=== PATIENT | female | born 1930 | race Caucasian/White ===

== ENCOUNTER 2016-11-18 09:52 | Emergency (ER) | payer MEDICARE, BC, OTHER ==
[~2016-11-18] VITALS: Ht 162.6 cm; Wt 70.0 kg
[~2016-11-18 09:52] MED LIST: ASPI81TA82 PO; CALCTAB75 PO; LIAL1.2T PO; MISC1TAB9 PO; SYNT88TA PO; TAB-TAB PO; VITD400 PO; [UNRECOGNIZED DRUG - CODE] TD
[2016-11-18 09:56] VITALS: BP 141/78; PULSE 88; RESP 16; TEMP 98.6; O2SAT 94
[2016-11-18] MEDS ORDERED: VITATAB11 PO (10:05)
[2016-11-18] MEDS ORDERED: BOSW5TAB PO (10:05)
[2016-11-18] MEDS ORDERED: CALC500T42 PO (10:05)
[2016-11-18] MEDS ORDERED: MULT1TAB84 PO (10:05)
[2016-11-18] MEDS ORDERED: LEVO75TA3 PO (10:05)
[2016-11-18] MEDS ORDERED: VITA100018 PO (10:05)
[2016-11-18] MEDS ORDERED: LIAL1.2T PO (10:05)
[2016-11-18] MEDS ORDERED: ASPI81TA81 PO (10:05)
--- NOTE | 2016-11-18 10:11 | PD ---
HPI Chief Complaint: ENT Complaint Time Seen by Provider: 10:02 Travel History International Travel<30 days: No Contact w/Intl Traveler<30days: No Traveled to known affect area: No History of Present Illness HPI 86-year-old female here for evaluation of sore throat, fever, chills. Symptoms have been going on for the last 5 days. Throat pain has been persistent, worse with swallowing. She is able to swallow, however it is difficult because of pain. She was able to take her thyroid medication this morning. Reports having a fever of 101F. No cough or dyspnea. No chest pain. No abdominal pain, nausea, vomiting, or diarrhea. She believes she may have the flu. PFSH Past Medical History Diminished Hearing: No Gastrointestinal Disorders: Yes (ULCERATIVE COLITIS) Genitourinary: Yes (OVERACTIVE BLADDER ) Thyroid Disease: Yes (HYPO) Past Surgical History Eye Surgery: Yes (BILAT CATARACT) Genitourinary Surgery: Yes (BLADDER STIMULATOR R BUTTOCK) Gynecologic Surgery: Yes Oral Surgery: Yes Tonsillectomy: Yes Other Surgery: Yes Social History Alcohol Use: No Tobacco Use: No Substance Use: No Allergies-Medications (Allergen,Severity, Reaction): Coded Allergies: No Known Allergies (Unverified , 03/22/14) Reported Meds & Prescriptions Reported Meds & Active Scripts Active Reported Osteo Bi-Flex One A Day (Efebxcgnj-Vpmfdnvskpx-Vspmnhv) 1 Tab 1 Tab PO DAILY Vitamin B Complex (B-Complex Vitamins) 1 Tab 1 Tab PO DAILY Vitamin D3 (Cholecalciferol) 1,000 Unit Tab 1,000 Units PO DAILY Multivitamin Adults (Multiple Vitamins W/ Minerals) 1 Tab 1 Tab PO DAILY Aspir-81 (Aspirin) 81 Mg Tabdr 1 Tab PO DAILY Calcium 500 Mg Tab 500 Mg PO BID Lialda (Mesalamine) 1.2 Gm Tabdr 2.4 Gm PO DAILY Take with a meal. Levothyroxine (Levothyroxine Sodium) 75 Mcg Tab 75 Mcg PO DAILY Review of Systems Except as stated in HPI: all other systems reviewed are Neg Physical Exam Narrative GENERAL: Well-developed, well-nourished, comfortable, no acute distress. SKIN: Warm and dry. HEAD: Atraumatic. Normocephalic. EYES: Pupils equal and round. No scleral icterus. No injection or drainage. ENT: No nasal bleeding or discharge. Mucous membranes pink and moist. Pharynx is erythematous without exudate. Uvula midline. Normal phonation. No drooling or stridor. NECK: Trachea midline. No JVD. No nuchal rigidity. CARDIOVASCULAR: Regular rate and rhythm. RESPIRATORY: No accessory muscle use. Clear to auscultation. Breath sounds equal bilaterally. GASTROINTESTINAL: Abdomen soft, non-tender, nondistended. MUSCULOSKELETAL: No obvious deformities. No clubbing. No cyanosis. No edema. NEUROLOGICAL: Awake and alert. No obvious cranial nerve deficits. Motor grossly within normal limits. Normal speech. PSYCHIATRIC: Appropriate mood and affect; insight and judgment normal. Data Data Last Documented VS Vital Signs Date Time Temp Pulse Resp B/P Pulse Ox O2 Delivery O2 Flow Rate FiO2 11/18/16 11:44 96 Nasal Cannula 2 11/18/16 09:56 98.6 88 16 141/78 Orders Basic Metabolic Panel (Bmp) (11/18/16 10:07) Complete Blood Count With Diff (11/18/16 10:07) Iv Access Insert/Monitor (11/18/16 10:07) Ecg Monitoring (11/18/16 10:07) Oximetry (11/18/16 10:07) Sodium Chloride 0.9% Flush (Ns Flush) (11/18/16 10:15) Influenzae A/B Antigen (11/18/16 10:07) Group A Rapid Strep Screen (11/18/16 10:07) Chest, Single Ap (11/18/16 ) Strep Culture (Group A) (11/18/16 10:15) Sodium Chlorid 0.9% 500 Ml Inj (Ns 500 M (11/18/16 11:00) Al-Mag Hy-Si 40-40-4 Mg/Ml Liq (Mag-Al P (11/18/16 11:00) Lidocaine 2% Viscous (Xylocaine 2% Visco (11/18/16 11:00) Oseltamivir (Tamiflu) (11/18/16 11:15) Labs Laboratory Tests Test 11/18/16 10:15 White Blood Count 6.8 TH/MM3 Red Blood Count 4.42 MIL/MM3 Hemoglobin 12.6 GM/DL Hematocrit 37.3 % Mean Corpuscular Volume 84.4 FL Mean Corpuscular Hemoglobin 28.5 PG Mean Corpuscular Hemoglobin 33.8 % Concent Red Cell Distribution Width 14.0 % Platelet Count 176 TH/MM3 Mean Platelet Volume 8.7 FL Neutrophils (%) (Auto) 67.7 % Lymphocytes (%) (Auto) 17.1 % Monocytes (%) (Auto) 13.1 % Eosinophils (%) (Auto) 1.8 % Basophils (%) (Auto) 0.3 % Neutrophils # (Auto) 4.6 TH/MM3 Lymphocytes # (Auto) 1.2 TH/MM3 Monocytes # (Auto) 0.9 TH/MM3 Eosinophils # (Auto) 0.1 TH/MM3 Basophils # (Auto) 0.0 TH/MM3 CBC Comment DIFF FINAL Differential Comment Sodium Level 141 MEQ/L Potassium Level 4.3 MEQ/L Chloride Level 103 MEQ/L Carbon Dioxide Level 29.3 MEQ/L Anion Gap 9 MEQ/L Blood Urea Nitrogen 12 MG/DL Creatinine 0.69 MG/DL Estimat Glomerular Filtration 81 ML/MIN Rate Random Glucose 86 MG/DL Calcium Level 8.2 MG/DL MDM Medical Decision Making Medical Screen Exam Complete: Yes Emergency Medical Condition: Yes Medical Record Reviewed: Yes Differential Diagnosis Pharyngitis, viral illness, influenza, retropharyngeal abscess unlikely, peritonsillar abscess not likely, dehydration, meningitis not likely Narrative Course Vital signs show heart rate 88, blood pressure 141/78, pulse ox 96% on room air , oral temp of 98.6F. CBC is unremarkable. BMP is remarkable. Chest x-ray read as normal exam. Influenza A positive. The patient was made aware of all findings. She is resting comfortably. She is able to tolerate her secretions. Her throat is erythematous and edematous hard for her to swallow secondary to pain. There is no pharyngeal edema. She was given a half a liter normal saline bolus. She is overall well-appearing and tolerating clear liquids in the emergency department. I believe she will benefit from Tamiflu. I believe she is stable for discharge home without patient follow-up with her primary care physician this week. She was informed to stay hydrated with plenty of fluids. Tylenol/ibuprofen for pain/fever. She was informed on when to return to the emergency department. She verbalizes understanding and agreement with plan. Diagnosis Primary Impression: Influenza A Additional Impression: Pharyngitis Qualified Code: J02.8 - Pharyngitis due to other organism Referrals: Primary Care Physician 2 days Additional Instructions: Follow-up with your primary care physician in the next 1-2 days. Stay hydrated with plenty of fluids. Take Tylenol/ibuprofen for pain and fever. Return to the emergency department for worsening symptoms or any other concerns. Scripts Oseltamivir (Tamiflu)75 Mg Cap75 Mg PO BID 5 Days Ref 0 Prov:Chance Parker MD 11/18/16 Disposition: 01 DISCHARGE HOME Condition: Stable Chance Parker MD Nov 18, 2016 10:11
[2016-11-18] MEDS ORDERED: SODIUM CHLORIDE 0.9% FLUSH 5 ML FLUSH IVF PRN (10:15)
--- NOTE | 2016-11-18 10:39 | RADRPT ---
EXAM DATE/TIME: 11/18/2016 10:14 [facility] COMPARISON: CHEST SINGLE AP, March 22, 2014, 10:56. INDICATIONS : Shortness of breath. MEDICAL HISTORY : None. SURGICAL HISTORY : None. ENCOUNTER: Initial ACUITY: 1 day PAIN SCORE: 0/10 LOCATION: Bilateral chest FINDINGS: A single view of the chest demonstrates the lungs to be symmetrically aerated without evidence of mas s, infiltrate or effusion. The cardiomediastinal contours are unremarkable. Osseous structures are intact. The left hemidiaphragm is slightly elevated CONCLUSION: Normal examination. Gorge Sr MD on November 18, 2016 at 10:37 Board Certified Radiologist. This report was verified electronically.
[2016-11-18 10:40] LABS: AUTOMATED NEUTROPHIL # 4.6 TH/MM3 (1.8-7.7); BASOPHIL % 0.3 % (0.0-2.0); EOSINOPHIL # 0.1 TH/MM3 (0-0.4); EOSINOPHIL % 1.8 % (0.0-4.0); HEMATOCRIT 37.3 % (35.0-46.0); HEMO FLAGS DIFF FINAL; LYMPH % 17.1 % (9.0-44.0); LYMPHOCYTE # 1.2 TH/MM3 (1.0-4.8); MEAN CELL VOLUME 84.4 FL (80.0-100.0); MEAN CORPUSCULAR HEMOGLOBIN 28.5 PG (27.0-34.0); MEAN CORPUSCULAR HGB CONC 33.8 % (32.0-36.0); MONO % 13.1 % (0.0-8.0); NEUT % 67.7 % (16.0-70.0); PLATELET COUNT 176 TH/MM3 (150-450); RED BLOOD COUNT 4.42 MIL/MM3 (4.00-5.30); WHITE BLOOD COUNT 6.8 TH/MM3 (4.0-11.0)
[2016-11-18 10:54] VITALS: O2SAT 96
[2016-11-18 10:55] LABS: BICARBONATE 29.3 MEQ/L (21.0-32.0); POTASSIUM 4.3 MEQ/L (3.5-5.1)
[2016-11-18] MEDS ORDERED: SODIUM CHLORID 0.9% 500 ML INJ 500 ML IV ONE (11:00)
[2016-11-18] MEDS ORDERED: LIDOCAINE VISCOUS 2% SOLN 15 ML UDC PO ONE (11:00)
[2016-11-18] MEDS ORDERED: ALUMINUM/MAGNESIUM/SIMETH 30 ML CUP PO ONE (11:00)
[2016-11-18] MEDS ORDERED: OSELTAMIVIR PHOSPHATE 75 MG CAP PO ONE (11:15)
[2016-11-18] MEDS ORDERED: OSEL75 PO (11:56)
== END 2016-11-18 12:36 | disposition home or self-care (01) ==
LOC: NEPA 09:52
DX: J09.X2 Influenza due to identified novel influenza A virus with other respiratory manifestations (principal); J02.9 Acute pharyngitis, unspecified
CPT/HCPCS: 71010; 80048; 85025; 87081; 87804; 87880; 99284; J7040